=== PATIENT | female | born 1990 | race Two or more races ===

== ENCOUNTER 2016-09-13 18:22 | Emergency (ER) | payer OTHER ==
[~2016-09-13] VITALS: Ht 157.5 cm; Wt 59.0 kg
[2016-09-13] MEDS ORDERED: LIDOCAINE 1% / SOD BICARB 8.4% 20 ML VIAL. IJ ONE ×2 (18:27→19:15)
[2016-09-13] MEDS ORDERED: ACETAMINOPHEN 500 MG TABLET PO ONE (18:45)
[2016-09-13] MEDS ORDERED: LIDOCAINE 1% PF 2 ML VIAL. INJ ONE (18:45)
[2016-09-13] MEDS ORDERED: DIPHTH,PERTUSS(ACELL),TET TOX 0.5 ML DISP.SYRIN. VAX IM ONE (18:45)
--- NOTE | 2016-09-13 18:45 | PHYS DOC ---
Past Medical History Past Medical History: No Pertinent History Past Surgical History: No Surgical History Alcohol Use: None Drug Use: None Adult General Chief Complaint Chief Complaint: FOREIGN BODY HPI HPI Patient is a 25 year old female approx 6 months who presents with right foot pain after stepping on a screw. The screw penetrated her medial mid foot and she could not get it out. She has constant pain, worse when the screw wiggles, better when it is immobilized. She denies numbness, tingling, weakness. Unknown last TDAP. Was wearing flip flops near construction. Review of Systems Review of Systems Constitutional: Denies fever or chills [] Eyes: Denies change in visual acuity, redness, or eye pain [] HENT: Denies nasal congestion or sore throat [] Respiratory: Denies cough or shortness of breath [] Cardiovascular: No additional information not addressed in HPI [] GI: Denies abdominal pain, nausea, vomiting, bloody stools or diarrhea [] : Denies dysuria or hematuria [] Musculoskeletal: Denies back pain or joint pain [] Integument: Denies rash or skin lesions [] Neurologic: Denies headache, focal weakness or sensory changes [] Endocrine: Denies polyuria or polydipsia [] Current Medications Current Medications Current Medications Medications (Trade) Dose Ordered Sig/Soraida Start Time Stop Time Status Last Admin Dose Admin Acetaminophen (Tylenol) 500 mg 1X ONCE 09/13/16 18:45 09/13/16 18:56 DC 09/13/16 19:49 500 MG Diphtheria/ Tetanus/Acell Pertussis (Boostrix) 0.5 ml ONCE ONCE 09/13/16 18:45 09/13/16 18:56 DC 09/13/16 19:50 0.5 ML Lidocaine HCl (Xylocaine-Mpf 1% Vial) 20 ml 1X ONCE 09/13/16 18:45 09/13/16 18:46 Cancel Lidocaine/Sodium Bicarbonate (Buffered Lidocaine 1%) 20 ml 1X ONCE 09/13/16 19:15 09/13/16 19:16 DC 09/13/16 19:49 20 ML Allergies Allergies Allergies Coded Allergies Type Severity Reaction Last Updated Verified No Known Drug Allergies 09/13/16 No Physical Exam Physical Exam Constitutional: Well developed, well nourished, no acute distress, non-toxic appearance. [] HENT: Normocephalic, atraumatic, bilateral external ears normal, oropharynx moist, nose normal. [] Eyes: PERRLA, EOMI. [] Neck: Normal range of motion, supple. [] Cardiovascular:Heart rate regular rhythm [] Lungs & Thorax: Bilateral breath sounds clear to auscultation [] Abdomen: Bowel sounds normal, soft, no tenderness. [] Skin: Warm, dry, no erythema, no rash. [] Back: Normal ROM. [] Extremities: RLE with screw penetrating medial plantar mid foot that is mobile, nonbleeding, tender to touch, no surrounding discoloration or tenderness; Can flex/ex toes; Can dorsiflex/plantar flex ankle; No medial or lateral malleolar tenderness; No 5 th metatarsal base tenderness; SILT paul/sa/sp/dp/tib distributions; good dp and pt pulses equal bilaterally Neurologic: Alert and oriented X 3, normal motor function, normal sensory function, no focal deficits noted. [] Psychologic: Affect normal, judgement normal, mood normal. [] Current Patient Data Vital Signs Vital Signs Date Time Temp Pulse Resp B/P (MAP) Pulse Ox O2 Delivery O2 Flow Rate FiO2 09/13/16 19:54 82 16 96/70 (79) 98 Room Air 09/13/16 18:34 98.3 98.3 Course & Med Decision Making Course & Med Decision Making Pertinent Labs and Imaging studies reviewed. (See chart for details) Screw was removed manually after local analgesia injection. She tolerated this well. She was able to move foot appropriately after this. Tdap given. Wound care discussed. Return precautions given. She understands and agrees with plan. Dragon Disclaimer Maddie Disclaimer This electronic medical record was generated, in whole or in part, using a voice recognition dictation system. Foreign Body Removal Procedure Indication: Screw to right medial plantar mid foot Procedure: The area of the foreign body was prepped by removing sandal. Local anesthesia over the foreign body site was lidocaine 1%, 4ml. The foreign body was then removed manually. After the procedure there was no bleeding and cotton dressing was applied. The patient's tetanus status updated today. The patient tolerated the procedure well. Complications: none Departure Departure Impression: Primary Impression: Puncture wound of foot without foreign body Disposition: HOME, SELF-CARE Condition: STABLE Patient Instructions: Puncture Wound, [id number] Additional Instructions: Take Tylenol as needed for pain. Wash your foot with soap and water to keep it clean. Follow-up with your primary care doctor. Return for any concerns. Problem Qualifiers Primary Impression: Puncture wound of foot without foreign body Encounter type: initial encounter Laterality: right Qualified Codes: S91.331A - Puncture wound without foreign body, right foot, initial encounter An CHEATHAM MD Sep 13, 2016 18:45
[2016-09-13 19:54] VITALS: BP 96/70
--- NOTE | 2016-09-14 08:37 | RAD ---
Indication pain associated with an injury. AP and lateral views of the right foot were obtained. Subcutaneous air is suggested medially along the foot. A bony abnormality is not seen. No radiopaque foreign body is seen
== END 2016-09-13 20:00 | disposition home or self-care (01) ==
LOC: ER 18:22
DX: O26.891 Other specified pregnancy related conditions, first trimester (principal); S91.331A Puncture wound without foreign body, right foot, initial encounter; Z3A.01 Less than 8 weeks gestation of pregnancy; Y28.8XXA Contact with other sharp object, undetermined intent, initial encounter; Y93.89 Activity, other specified; Y99.8 Other external cause status; Y92.89 Other specified places as the place of occurrence of the external cause
CPT/HCPCS: 73620; 90471; 90715; 96372; 99284-25